=== PATIENT | male | born 1980 | race African-American/Black ===

== ENCOUNTER 2016-09-20 16:26 | Emergency (ER) | payer OTHER ==
[2016-09-20] MEDS ORDERED: Lidocaine 1% 5ml(IM or SUTURE)(PAIN CLINIC) ONE (17:04)
[2016-09-20] MEDS: Lidocaine 1% 5ml(IM or SUTURE)(PAIN CLINIC) IJ ONE (17:20)
[2016-09-20] MEDS ORDERED: AMOXICILLIN 500 MG CAPSULE PO ONE (17:47)
[2016-09-20] MEDS: AMOXICILLIN 500 MG CAPSULE PO ONE (17:57)
--- NOTE | 2016-09-20 18:04 | ED Physician Documentation ---
General Adult - HISTORIAN Historian: patient - HPI Stated Complaint: laceration to lip Chief Complaint: Laceration/Recheck/Suture Additional Information: pt fell prod 1.2 cm lac upper lt central lip two loose central lower teeth w. missing tooth 22. there are two small lac inner lip-not all the way through. pt denies head neck kor kother injuries kor pain Onset: hours (1500) Timing: still present Severity: moderate Further Comments: yes (pt has mustache-slight extention into lthat. the lac involves vermilion border. pt advised possible scaring after healing. he is also advised consider seeing dentist) - ROS CONST: no problems EYES/ENT: denies: problems with vision CVS/RESP: none GI/: none MS/SKIN/LYMPH: none NEURO/PSYCH: denies: headache, dizziness, numbness, difficulty walking, difficulty with speech - PAST HX Past History: none Surgeries/Procedures: none Immunizations: UTD (february 27 2016) Allergies/Adverse Reactions: Allergies Allergy/AdvReac Type Severity Reaction Status Date / Time No Known Allergies Allergy Verified 09/20/16 16:35 Home Medications: Ambulatory Orders Medication Instructions Recorded NK [NK] 09/20/16 - SOCIAL HX Smoking History: non-smoker Alcohol Use: none Drug Use: none - FAMILY HX Family History: No - VITAL SIGNS Vital Signs: Vital Signs Temp Pulse Resp BP Pulse Ox 98.4 F 64 18 137/79 96 09/20/16 16:35 09/20/16 16:35 09/20/16 16:35 09/20/16 16:35 09/20/16 16:35 - REVIEWED ASSESSMENTS Nursing Assessment Reviewed: Yes Vitals Reviewed: Yes Procedures Wound Location: face, other (upper lip) Wound's Depth, Shape: superficial, into muscle, irregular Wound Explored: no foreign body removed Betadine Prep?: Yes Anesthesia: 1% Lidocaine Wound Repaired With: sutures Suture Size/Type: 5:0 Number of Sutures: 4 Layer Closure?: No Sterile Dressing Applied?: No (dermabond sealant to cover luture ends) ED Results Lab/Radiology - Orders Orders: ED Orders Category Date Time Status Skin Adhesive NOW Care 09/20/16 18:00 Ordered Amoxicillin [Amoxil] Med 09/20/16 17:47 Discontinued 1,000 mg PO .STK-MED ONE Amoxicillin [Amoxil] Med 09/20/16 17:49 Discontinued 1,000 mg PO NOW ONE Lidocaine 1% 5ml(IM or SUTURE) [Xylocaine] Med 09/20/16 17:04 Discontinued 50 mg .ROUTE .STK-MED ONE Lidocaine 1% 5ml(IM or SUTURE) [Xylocaine] Med 09/20/16 17:54 Discontinued 50 mg IJ NOW ONE General Adult Physical Exam - PHYSICAL EXAM GENERAL APPEARANCE: mild distress EENT: eye inspection normal NECK: normal inspection RESPIRATORY: no resp distress, chest non-tender, breath sounds normal CVS: reg rate & rhythm, heart sounds normal ABDOMEN: soft SKIN: warm/dry, normal color. No: cyanosis, diaphoresis, jaundice EXTREMITIES: non-tender, normal range of motion, no evidence of injury NEURO: oriented X3, mood/affect nml Discharge Clincal Impression: Laceration of vermilion border of upper lip Home Medications: Ambulatory Orders NK [NK] 09/20/16 Condition: Good Disposition: 01 HOME, SELF-CARE Decision to Admit: NO Decision Time: 18:05
[2016-09-20 18:06] VITALS: BP 156/69
== END 2016-09-20 18:04 | disposition home or self-care (01) ==
LOC: ED 16:26
DX: S01.511A Laceration without foreign body of lip, initial encounter (principal); S03.2XXA Dislocation of tooth, initial encounter; W19.XXXA Unspecified fall, initial encounter; Y92.149 Unspecified place in prison as the place of occurrence of the external cause
CPT/HCPCS: 12011; 99283